=== PATIENT | female | born 1995 | race African-American/Black ===

== ENCOUNTER 2022-03-05 14:13 | Inpatient (IN) ==
[2022-03-05 14:52] LABS: Bacteria,Urine Few /HPF (Few); Mucus,Urine Many /LPF (Occasional); Squamous Epithelial Cell,Urine Many /HPF (0-10); Urine Appearance Clear (Clear); Urine Color Yellow (Yellow)
[2022-03-05 14:53] LABS: Bilirubin,Urine Small mg/dL (Negative); Blood, Urine Negative (Negative); Glucose,Urine (UA) Negative (Negative); Ketones,Urine Negative (Negative); Nitrite,Urine Negative (Negative); Protein,Urine >=300 mg/dL (Negative); Urine Specific Gravity > 1.030 (1.001-1.035)
[2022-03-05 15:29] LABS: Basophils % 0.5 % (0.0-0.8); Eosinophils # 0.1 10*3/uL (0.0-0.87); Eosinophils % 1.7 % (0.00-10.9); Hematocrit 23.9 VOL% (35.7-47.0); Hemoglobin 7.1 GM/DL (12.0-16.0); Immature Granulocytes % 0.3 %; Immature Granulocytes Absolute 0.02 #; Lymphocytes # 1.6 10*3/uL (1.4-4.0); Lymphocytes % 24.7 % (21.3-54.2); Mean Corpuscular HGB Conc 29.7 GM/DL (32-36); Mean Corpuscular Volume 67.9 FL (87-102); Mean Platelet Volume 9.9 FL (9.6-12.0); Monocytes # 0.5 10*3/uL (0.11-0.8); Monocytes % 7.9 % (1.7-12.7); NRBC # 0.03 10*3/uL; Neutrophils % 64.9 % (38.7-73.9); Platelet Count 268 T/CUMM (130-400); Red Blood Count 3.52 MC/CUMM (3.8-5.5); Red Cell Distribution Width 15.1 % (9.3-17.3); White Blood Count 6.3 T/CUMM (4-12)
[2022-03-05] MEDS ORDERED: LACTATED RINGERS 1,000 ML IV ONE (15:30)
[2022-03-05 15:46] LABS: Alanine Aminotransferase 9 U/L (13-56); Albumin 2.3 G/DL (3.4-5.0); Alkaline Phosphatase 130 U/L (45-117); Aspartate Amino Transferase 11 U/L (0-37); Bilirubin,Direct < 0.100 MG/DL (0.0-0.20); Blood Urea Nitrogen 7 MG/DL (7-18); Calcium 8.9 MG/DL (8.5-10.1); Carbon Dioxide 22 MMOL/L (21-32); Chloride 111 MMOL/L (98-107); Glucose 77 MG/DL (74-106); Osmolality,Calculated 273.5 MOS/KG (273-304); Potassium 3.9 MMOL/L (3.5-5.1); Sodium 139 MMOL/L (136-145); Total Protein 6.1 G/DL (6.4-8.2); Uric Acid 5.4 MG/DL (2.6-6.0)
[2022-03-05 15:52] LABS: INR 0.9; PT Patient Result 10.2 SECS (10.1-12.1); Partial Thromboplastin Time 25.6 SECS (23.7-32.9)
[2022-03-05] MEDS: LACTATED RINGERS 1,000 ML IV SCH (16:23)
[2022-03-05 16:43] LABS: Protein/Creatinine Ratio,Urine 0.9 RATIO
[2022-03-05] MEDS ORDERED: ACETAMINOPHEN/CODEINE 300-30 MG TABLET PO PRN (16:56)
[2022-03-05] MEDS ORDERED: PROMETHAZINE 25 MG/1 ML VIAL IM ONE (16:56)
[2022-03-05] MEDS: BETAMETH SODIUM PHOS/ACETATE 30 MG/5 ML VIAL IM SCH (17:20)
[2022-03-05] MEDS ORDERED: SODIUM CHLORIDE 0.9% 1,000 ML IV PRN (17:32)
[2022-03-06] MEDS: LACTATED RINGERS 1,000 ML IV SCH (02:15)
[2022-03-06] MEDS: BETAMETH SODIUM PHOS/ACETATE 30 MG/5 ML VIAL IM SCH (05:09)
[2022-03-06] MEDS: ACETAMINOPHEN 500 MG TABLET PO PRN ×2 (12:28→20:26)
[2022-03-06 19:29] LABS: Total Protein 24 Hr Ur Result 2400 MG/24HR (0-149.1); Total Volume,Urine 750 ML (400-2000)
[2022-03-07] MEDS ORDERED: TRANEXAMIC ACID 1,000 MG in SODIUM CHLORIDE 0.9% 100 ML IV PRN (05:24)
[2022-03-07] MEDS ORDERED: CARBOPROST TROMETHAMINE 250 MCG/ML AMP IM PRN (05:24)
[2022-03-07] MEDS ORDERED: METHYLERGONOVINE 0.2 MG/1 ML AMP IM PRN (05:24)
[2022-03-07] MEDS ORDERED: miSOPROStoL 200 MCG TABLET RECTAL PRN (05:24)
[2022-03-07] MEDS ORDERED: LACTATED RINGERS 1,000 ML IV PRN (05:46)
[2022-03-07] MEDS ORDERED: OXYTOCIN/LR 20 UNIT/1,000 ML BAG IV ONE ×2 (06:00→11:03)
[2022-03-07 06:34] LABS: Basophils % 0.1 % (0.0-0.8); Hematocrit 25.3 VOL% (35.7-47.0); Hemoglobin 7.4 GM/DL (12.0-16.0); Immature Granulocytes % 1.5 %; Immature Granulocytes Absolute 0.25 #; Lymphocytes # 1.4 10*3/uL (1.4-4.0); Lymphocytes % 8.7 % (21.3-54.2); Mean Corpuscular HGB Conc 29.2 GM/DL (32-36); Mean Corpuscular Volume 70.1 FL (87-102); Mean Platelet Volume 10.6 FL (9.6-12.0); Monocytes # 0.8 10*3/uL (0.11-0.8); Neutrophils % 84.7 % (38.7-73.9); Platelet Count 331 T/CUMM (130-400); Red Blood Count 3.61 MC/CUMM (3.8-5.5); White Blood Count 16.4 T/CUMM (4-12)
[2022-03-07 06:46] LABS: INR 0.9; Partial Thromboplastin Time 23.1 SECS (23.7-32.9)
[2022-03-07 06:50] LABS: Albumin 2.5 G/DL (3.4-5.0); Bilirubin,Total 0.4 MG/DL (0.20-1.00); Calcium 9.1 MG/DL (8.5-10.1); Potassium 4.2 MMOL/L (3.5-5.1); Total Protein 6.5 G/DL (6.4-8.2)
[2022-03-07] MEDS ORDERED: SODIUM CHLORIDE 0.9% 1,000 ML IV PRN (07:07)
[2022-03-07] MEDS: ACETAMINOPHEN 500 MG TABLET PO PRN (07:30)
[2022-03-07] MEDS: LACTATED RINGERS 1,000 ML IV SCH (07:32)
[2022-03-07] MEDS ORDERED: BUPIVACAINE SPINAL 0.75% 2 ML AMP SPINAL ONE (08:21)
[2022-03-07] MEDS ORDERED: PHENYLEPHRINE 1 MG/10 ML SYRINGE IV ONE (08:21)
[2022-03-07] MEDS ORDERED: ONDANSETRON 4 MG/2 ML VIAL ONE ×2 (08:21→10:24)
[2022-03-07] MEDS ORDERED: buprenorphine HCL 0.3 MG/ML VIAL ONE (08:21)
[2022-03-07] MEDS ORDERED: FAMOTIDINE 20 MG/2 ML VIAL IV ONE (08:30)
[2022-03-07] MEDS ORDERED: OXYTOCIN 10 UNIT/ML VIAL IM ONE (08:30)
[2022-03-07] MEDS ORDERED: CLINDAMYCIN INJ 900 MG/50 ML PREMIX IV ONE (08:30)
[2022-03-07] MEDS ORDERED: CITRIC ACID/SODIUM CITRATE 30 ML UDCUP PO ONE (08:30)
[2022-03-07] MEDS ORDERED: OXYTOCIN/LR 30 UNIT/1,000 ML BAG IV ONE (08:30)
[2022-03-07] MEDS ORDERED: CARBOPROST TROMETHAMINE 250 MCG/ML AMP IM ONE (08:35)
[2022-03-07] MEDS ORDERED: miSOPROStoL 200 MCG TABLET ONE (08:35)
[2022-03-07] MEDS ORDERED: SODIUM CHLORIDE 0.9% 0 ML IV ONE (08:35)
[2022-03-07] MEDS ORDERED: TRANEXAMIC ACID 1,000 MG/10 ML VIAL ONE (08:35)
[2022-03-07] MEDS ORDERED: fentaNYL 100 MCG/2 ML VIAL ONE (10:34)
[2022-03-07 10:35] LABS: Cord Venous Blood HCO3 19.8 MMOL/L; Cord Venous Blood PCO2 50.8 MMHG; Cord Venous Blood PO2 26.4
[2022-03-07 10:41] LABS: Cord Venous Blood HCO3 20.3 MMOL/L; Cord Venous Blood PCO2 51.2 MMHG
[2022-03-07] MEDS ORDERED: ONDANSETRON 4 MG/2 ML VIAL IV PRN (11:03)
[2022-03-07] MEDS ORDERED: ACETAMINOPHEN 325 MG TABLET PO PRN (11:03)
[2022-03-07] MEDS ORDERED: SIMETHICONE CHEW 80 MG TABLET PO PRN (11:03)
[2022-03-07] MEDS ORDERED: RHO(D) IMMUNE GLOBULIN 300 MCG SYRINGE IM ONE (11:03)
[2022-03-07] MEDS ORDERED: NIFEdipine 10 MG CAPSULE PO ONE ×2 (11:30→12:00)
[2022-03-07] MEDS ORDERED: LACTATED RINGERS 1,000 ML IV SCH (11:30)
[2022-03-07 12:41] LABS: Urine Appearance Clear (Clear); Urine Color Yellow (Yellow)
[2022-03-07 12:42] LABS: Bilirubin,Urine Negative (Negative); Blood, Urine Moderate mg/dL (Negative); Glucose,Urine (UA) Negative (Negative); Ketones,Urine Negative (Negative); Nitrite,Urine Negative (Negative); Protein,Urine >=300 mg/dL (Negative); Urine Specific Gravity >= 1.030 (1.001-1.035)
[2022-03-07 12:43] LABS: Urine Urobilinogen < 2.0 eU/dL (<2.0)
[2022-03-07 12:44] LABS: Mucus,Urine Occasional /LPF (Occasional); RBC,Urine 15-20 /HPF (0-4); Squamous Epithelial Cell,Urine Occasional /HPF (0-10)
[2022-03-07] MEDS ORDERED: diphenhydrAMINE 50 MG/1 ML VIAL IV ONE ×2 (13:26→13:30)
[2022-03-07] MEDS ORDERED: diphenhydrAMINE CAP 25 MG CAPSULE PO ONE (13:30)
[2022-03-07] MEDS ORDERED: diphenhydrAMINE 50 MG/1 ML VIAL ONE (13:32)
[2022-03-07 15:22] LABS: Hematocrit 31.4 VOL% (35.7-47.0); Hemoglobin 9.6 GM/DL (12.0-16.0)
[2022-03-07] MEDS: ACETAMINOPHEN 500 MG TABLET PO SCH ×2 (16:52→21:33)
[2022-03-07] MEDS: CLINDAMYCIN INJ 900 MG/50 ML PREMIX IV SCH (17:39)
[2022-03-07] MEDS: DOCUSATE SODIUM 100 MG CAPSULE PO SCH (21:33)
[2022-03-08] MEDS: CLINDAMYCIN INJ 900 MG/50 ML PREMIX IV SCH (01:13)
[2022-03-08] MEDS: ACETAMINOPHEN 500 MG TABLET PO SCH (05:32)
[2022-03-08] MEDS: IBUPROFEN 800 MG TABLET PO PRN ×2 (06:27→14:34)
[2022-03-08 06:32] LABS: Basophils % 0.2 % (0.0-0.8); Hematocrit 31.8 VOL% (35.7-47.0); Hemoglobin 9.6 GM/DL (12.0-16.0); Immature Granulocytes % 1.9 %; Immature Granulocytes Absolute 0.35 #; Lymphocytes # 1.8 10*3/uL (1.4-4.0); Lymphocytes % 9.7 % (21.3-54.2); Mean Corpuscular HGB Conc 30.2 GM/DL (32-36); Mean Corpuscular Volume 72.8 FL (87-102); Mean Platelet Volume 9.9 FL (9.6-12.0); Monocytes # 1.8 10*3/uL (0.11-0.8); Monocytes % 9.9 % (1.7-12.7); NRBC # 0.16 10*3/uL; Neutrophils % 78.3 % (38.7-73.9); Platelet Count 299 T/CUMM (130-400); Red Blood Count 4.37 MC/CUMM (3.8-5.5); Red Cell Distribution Width 18.2 % (9.3-17.3); White Blood Count 18.5 T/CUMM (4-12)
[2022-03-08] MEDS: MULTIVITAMIN (PRENATAL) TABLET PO SCH (08:40)
[2022-03-08] MEDS: DOCUSATE SODIUM 100 MG CAPSULE PO SCH ×2 (08:40→21:26)
[2022-03-08] MEDS: MAGNESIUM HYDROXIDE SUSP 30 ML UDCUP PO PRN (17:29)
[2022-03-09] MEDS: IBUPROFEN 800 MG TABLET PO PRN (04:41)
[2022-03-09] MEDS: DOCUSATE SODIUM 100 MG CAPSULE PO SCH ×2 (09:11→21:46)
[2022-03-09] MEDS: MAGNESIUM HYDROXIDE SUSP 30 ML UDCUP PO PRN (09:11)
[2022-03-09] MEDS: MULTIVITAMIN (PRENATAL) TABLET PO SCH (09:11)
[2022-03-09] MEDS: METOCLOPRAMIDE 10 MG TABLET PO SCH (18:10)
[2022-03-10 07:22] VITALS: BP 137/94
[2022-03-10] MEDS: METOCLOPRAMIDE 10 MG TABLET PO SCH (07:53)
[2022-03-10] MEDS: MULTIVITAMIN (PRENATAL) TABLET PO SCH (08:16)
[2022-03-10] MEDS: DOCUSATE SODIUM 100 MG CAPSULE PO SCH (16:18)
== END 2022-03-10 12:10 | disposition home or self-care (01) | DRG 788 ==
LOC: N.LDOUT 14:13 → N.LD 14:16 → N.OB 03-07 15:01
PROVIDERS: ADMIT Obstetrics & Gynecology; ATTEND Obstetrics & Gynecology
PROC: LDCSECT (ICD-10-PCS; 2022-03-07 09:00)